=== PATIENT | male | born 1965 | race African-American/Black ===

== ENCOUNTER 2021-09-26 03:09 | Emergency (ER) | payer MEDICAID, OTHER ==
[~2021-09-26] VITALS: Ht 185.4 cm; Wt 104.3 kg
[2021-09-26 04:12] LABS: Basophils # (auto) 0.1 10 ^3/uL (0-0.2); Basophils % (auto) 0.6 % (0.0-2.0); Eosinophils # (auto) 0.1 10 ^3/uL (0-0.8); Hematocrit 37.5 % (41.0-53.0); Hemoglobin 12.7 g/dL (13.5-17.5); Lymphocytes # (auto) 1.5 10 ^3/uL (0.4-5.4); Mean Corpuscular Hemoglobin 29.3 pg (28.0-32.0); Mean Corpuscular Hgb Conc. 33.9 g/dL (32.0-36.0); Mean Corpuscular Volume 86.4 fL (80.0-100.0); Monocytes # (auto) 0.5 10 ^3/uL (0-1.3); Monocytes % (auto) 5.8 % (0.0-12.0); Neutrophils # (auto) 6.6 10 ^3/uL (1.6-8.6); Neutrophils % (auto) 75.6 % (37.0-80.0); Red Blood Cells 4.34 10^6/uL (4.5-5.90); Red Cell Distribution Width 15.8 % (11.8-14.3); White Blood Cell 8.7 10^3/uL (4.4-10.8)
[2021-09-26 04:20] LABS: Albumin 3.6 g/dL (3.4-5.0); BUN/Creatinine Ratio 9.9; Magnesium 1.7 mg/dL (1.6-2.6)
[2021-09-26 04:25] LABS: Bilirubin, Total 0.7 mg/dL (0.2-1.0); Total Protein 7.8 g/dL (6.4-8.2)
[2021-09-26 04:42] LABS: INR 1.09 (0.9-1.15); Partial Thromboplastin Time < 20.0 sec (23.6-33.0)
[2021-09-26 06:38] LABS: Urine Bacteria NONE SEEN /hpf (None Seen); Urine Blood 1+ /uL (Negative); Urine Specific Gravity 1.011 (1.001-1.035); Urine WBC 1 /hpf (0 - 3)
[2021-09-26] MEDS ORDERED: ONDANSETRON HCL 4 MG/2 ML VIAL IV ONE (06:45)
[2021-09-26 06:46] VITALS: BP 170/98
== END 2021-09-26 06:59 | disposition short-term general hospital (02) ==
LOC: ER 03:09 → EDBD 03:09 → ER 06:59
DX: R47.01 Aphasia (principal); I16.0 Hypertensive urgency; Z86.73 Personal history of transient ischemic attack (TIA), and cerebral infarction without residual deficits
CPT/HCPCS: 36415; 70450; 80053; 81001; 83735; 84484; 85025; 85610; 85730; 93005; 96374; 96375; 99285; J2405

== ENCOUNTER 2021-10-05 02:03 | Inpatient (IN) | payer MEDICAID ==
[~2021-10-05] VITALS: Ht 185.4 cm; Wt 107.5 kg
[2021-10-05 03:24] LABS: Basophils # (auto) 0 10 ^3/uL (0-0.2); Basophils % (auto) 0.6 % (0.0-2.0); Eosinophils # (auto) 0.2 10 ^3/uL (0-0.8); Eosinophils % (auto) 4.2 % (0.0-7.0); Lymphocytes # (auto) 1.4 10 ^3/uL (0.4-5.4); Lymphocytes % (auto) 23.9 % (10.0-50.0); Mean Corpuscular Hemoglobin 29.4 pg (28.0-32.0); Mean Corpuscular Hgb Conc. 34.2 g/dL (32.0-36.0); Monocytes # (auto) 0.7 10 ^3/uL (0-1.3); Monocytes % (auto) 11.7 % (0.0-12.0); Neutrophils # (auto) 3.5 10 ^3/uL (1.6-8.6); Neutrophils % (auto) 59.6 % (37.0-80.0); Nucleated Red Blood Cells % 0.1 %; Red Blood Cells 4.42 10^6/uL (4.5-5.90); Red Cell Distribution Width 16.3 % (11.8-14.3); White Blood Cell 5.9 10^3/uL (4.4-10.8)
[2021-10-05 03:39] LABS: Calcium 9.2 mg/dL (8.5-10.1); Potassium 3.7 mmol/L (3.5-5.1)
[2021-10-05 03:42] LABS: Albumin 3.7 g/dL (3.4-5.0); BUN/Creatinine Ratio 19.7
[2021-10-05 03:48] LABS: Bilirubin, Total 0.4 mg/dL (0.2-1.0); Total Protein 7.6 g/dL (6.4-8.2)
[2021-10-05] MEDS ORDERED: ASPirin 325 MG TAB PO ONE (04:00)
[2021-10-05] MEDS ORDERED: NITROGLYCERIN 0.4 MG SL TAB SL ONE (04:45)
[2021-10-05 04:56] LABS: Urine Bacteria NONE SEEN /hpf (None Seen); Urine Blood Negative /uL (Negative); Urine Specific Gravity 1.013 (1.001-1.035); Urine WBC <1 /hpf (0 - 3)
[2021-10-05] MEDS ORDERED: ONDANSETRON HCL 4 MG/2 ML VIAL IV PRN (06:15)
[2021-10-05] MEDS ORDERED: NITROGLYCERIN 0.4 MG SL TAB SL PRN (06:15)
[2021-10-05] MEDS ORDERED: MORPHINE SULFATE INJECTION 2 MG/ML SYRG IV PRN (06:15)
[2021-10-05] MEDS ORDERED: ACETAMINOPHEN 325 MG TAB PO PRN (06:15)
[2021-10-05] MEDS: LISINOPRIL 10 MG TAB PO SCH ×2 (06:33→12:00)
[2021-10-05] MEDS: ENOXAPARIN SOD 100 MG/1 ML SYRINGE SC ONE ×2 (06:34→06:40)
[2021-10-05] MEDS ORDERED: HYDR50TA15 PO ×2 (09:33→12:58)
[2021-10-05] MEDS ORDERED: LISI-716 PO (09:33)
[2021-10-05] MEDS ORDERED: AMLO-489 PO (09:34)
[2021-10-05] MEDS ORDERED: CARV25TA55 PO ×2 (09:34→12:58)
[2021-10-05] MEDS ORDERED: ASPI-543 PO (09:34)
[2021-10-05] MEDS ORDERED: ATOR-47 PO (09:34)
[2021-10-05] MEDS ORDERED: TICA90TA PO ×2 (09:34→12:58)
[2021-10-05 10:56] VITALS: BP 175/100
[2021-10-05] MEDS: PANTOPRAZOLE 40 MG TAB PO SCH (12:00)
[2021-10-05] MEDS: ASPirin 81 mg TAB PO SCH (12:00)
[2021-10-05 12:56] VITALS: BP 182/83
[2021-10-05] MEDS ORDERED: INSLISPI SC (12:58)
[2021-10-05] MEDS ORDERED: INSLANTI SC (12:58)
[2021-10-05 15:48] VITALS: BP 138/81
[2021-10-05] MEDS: hydrALAZINE HCL 20 MG/ML VL IV PRN (17:40)
[2021-10-05] MEDS: CARVEDILOL 12.5 MG TAB PO SCH (21:00)
[2021-10-05] MEDS: ATORVASTATIN 20 MG TAB PO SCH (21:01)
[2021-10-05 22:00] VITALS: BP 131/70
[2021-10-05] MEDS ORDERED: ATORVASTATIN 20 MG TAB PO SCH (22:00)
[2021-10-05] MEDS ORDERED: DEXTROSE (50%) 50ML SYRG IV PRN (22:15)
[2021-10-06 05:00] VITALS: BP 143/82
[2021-10-06 05:41] LABS: Basophils # (auto) 0 10 ^3/uL (0-0.2); Basophils % (auto) 0.8 % (0.0-2.0); Eosinophils # (auto) 0.2 10 ^3/uL (0-0.8); Eosinophils % (auto) 3.9 % (0.0-7.0); Hematocrit 35.2 % (41.0-53.0); Hemoglobin 12.3 g/dL (13.5-17.5); Lymphocytes # (auto) 1.5 10 ^3/uL (0.4-5.4); Lymphocytes % (auto) 32.9 % (10.0-50.0); Mean Corpuscular Hemoglobin 29.9 pg (28.0-32.0); Mean Corpuscular Hgb Conc. 34.9 g/dL (32.0-36.0); Mean Corpuscular Volume 85.6 fL (80.0-100.0); Monocytes # (auto) 0.6 10 ^3/uL (0-1.3); Monocytes % (auto) 13.8 % (0.0-12.0); Neutrophils # (auto) 2.2 10 ^3/uL (1.6-8.6); Neutrophils % (auto) 48.6 % (37.0-80.0); Nucleated Red Blood Cells % 0.1 %; Red Blood Cells 4.11 10^6/uL (4.5-5.90); Red Cell Distribution Width 16.1 % (11.8-14.3); White Blood Cell 4.6 10^3/uL (4.4-10.8)
[2021-10-06 05:54] LABS: Albumin 3.2 g/dL (3.4-5.0); Potassium 4.1 mmol/L (3.5-5.1)
[2021-10-06 05:57] LABS: BUN/Creatinine Ratio 14.6
[2021-10-06 05:59] LABS: Bilirubin, Total 0.4 mg/dL (0.2-1.0); Total Protein 6.8 g/dL (6.4-8.2)
[2021-10-06] MEDS: InsuLIN REG 1unit/0.01ml Soln (100units/ml) SC SCH ×4 (07:00→21:34)
[2021-10-06] MEDS: ACCU-CHEK COMFORT CURVE STRIP VI SCH ×4 (07:01→21:28)
[2021-10-06] MEDS ORDERED: ADENOSINE 88 MG in GIVE UN-DILUTED 0 ML IV STA (08:00)
[2021-10-06 08:56] VITALS: BP 148/93
[2021-10-06] MEDS: amLODIPine BESYLATE 5 MG TAB PO SCH (12:34)
[2021-10-06] MEDS: CARVEDILOL 12.5 MG TAB PO SCH ×2 (12:34→21:29)
[2021-10-06] MEDS: ENOXAPARIN SOD 120 MG/0.8 ML SYRINGE SC SCH (12:35)
[2021-10-06] MEDS: ASPirin 81 mg TAB PO SCH (12:35)
[2021-10-06] MEDS: PANTOPRAZOLE 40 MG TAB PO SCH (12:35)
[2021-10-06 12:53] VITALS: BP 173/103
[2021-10-06 17:00] VITALS: BP 129/71
[2021-10-06] MEDS: ATORVASTATIN 20 MG TAB PO SCH (21:29)
[2021-10-06 22:26] VITALS: BP 148/88
[2021-10-07 05:00] VITALS: BP 142/72
[2021-10-07] MEDS: InsuLIN REG 1unit/0.01ml Soln (100units/ml) SC SCH ×4 (06:10→21:01)
[2021-10-07] MEDS: ACCU-CHEK COMFORT CURVE STRIP VI SCH ×4 (06:11→21:03)
[2021-10-07 06:14] LABS: Basophils # (auto) 0.1 10 ^3/uL (0-0.2); Basophils % (auto) 1.1 % (0.0-2.0); Eosinophils # (auto) 0.2 10 ^3/uL (0-0.8); Eosinophils % (auto) 4.2 % (0.0-7.0); Hematocrit 35.3 % (41.0-53.0); Lymphocytes # (auto) 1.8 10 ^3/uL (0.4-5.4); Lymphocytes % (auto) 36.2 % (10.0-50.0); Mean Corpuscular Hemoglobin 29.4 pg (28.0-32.0); Mean Corpuscular Hgb Conc. 34.1 g/dL (32.0-36.0); Monocytes # (auto) 0.7 10 ^3/uL (0-1.3); Monocytes % (auto) 13.2 % (0.0-12.0); Neutrophils # (auto) 2.3 10 ^3/uL (1.6-8.6); Neutrophils % (auto) 45.3 % (37.0-80.0); Nucleated Red Blood Cells % 0.1 %; Red Cell Distribution Width 16.1 % (11.8-14.3); White Blood Cell 5.1 10^3/uL (4.4-10.8)
[2021-10-07 06:42] LABS: BUN/Creatinine Ratio 13.3; Bilirubin, Total 0.4 mg/dL (0.2-1.0); Calcium 9.2 mg/dL (8.5-10.1); Total Protein 6.9 g/dL (6.4-8.2)
[2021-10-07 08:36] VITALS: BP 148/84
[2021-10-07] MEDS: CARVEDILOL 12.5 MG TAB PO SCH ×2 (08:54→21:07)
[2021-10-07] MEDS: ASPirin 81 mg TAB PO SCH (08:54)
[2021-10-07] MEDS: PANTOPRAZOLE 40 MG TAB PO SCH (08:55)
[2021-10-07] MEDS: amLODIPine BESYLATE 5 MG TAB PO SCH (08:55)
[2021-10-07] MEDS: ENOXAPARIN SOD 120 MG/0.8 ML SYRINGE SC SCH (08:56)
[2021-10-07 11:31] LABS: Cholesterol 187 mg/dL (< 200); HDL Cholesterol 50 mg/dL (40-59); LDL Cholesterol 115 mg/dL (< 100); Triglycerides 81 mg/dL (< 150)
[2021-10-07 12:51] VITALS: BP 158/95
[2021-10-07] MEDS: hydrALAZINE HCL 20 MG/ML VL IV PRN (13:27)
[2021-10-07 16:47] VITALS: BP 139/83
[2021-10-07] MEDS: FLUTICASONE PROP NASAL SPR 0.05 % (50MCG) 16GM EACHNOSTRI SCH (21:01)
[2021-10-07] MEDS: ATORVASTATIN 20 MG TAB PO SCH (21:02)
[2021-10-07 21:07] LABS: Protein, Urine 100.1 mg/dL (0.0-11.9)
[2021-10-07 21:36] VITALS: BP 133/77
[2021-10-08 05:00] VITALS: BP 141/88
[2021-10-08] MEDS: ACCU-CHEK COMFORT CURVE STRIP VI SCH ×2 (06:16→11:30)
[2021-10-08] MEDS: InsuLIN REG 1unit/0.01ml Soln (100units/ml) SC SCH ×2 (06:17→11:30)
[2021-10-08 06:19] LABS: BUN/Creatinine Ratio 12.6; Calcium 9.7 mg/dL (8.5-10.1); Potassium 3.9 mmol/L (3.5-5.1)
[2021-10-08 09:00] VITALS: BP 147/88
[2021-10-08] MEDS: ASPirin 81 mg TAB PO SCH (09:07)
[2021-10-08] MEDS: FLUTICASONE PROP NASAL SPR 0.05 % (50MCG) 16GM EACHNOSTRI SCH (09:07)
[2021-10-08] MEDS: amLODIPine BESYLATE 5 MG TAB PO SCH (09:08)
[2021-10-08] MEDS: CARVEDILOL 12.5 MG TAB PO SCH (09:08)
[2021-10-08] MEDS: PANTOPRAZOLE 40 MG TAB PO SCH (09:09)
[2021-10-08] MEDS: ENOXAPARIN SOD 120 MG/0.8 ML SYRINGE SC SCH (09:09)
[2021-10-08] MEDS ORDERED: INSLISPI SC (09:59)
[2021-10-08] MEDS ORDERED: INSLANTI SC (09:59)
[2021-10-08 11:32] VITALS: BP 147/88
[2021-10-08 13:00] VITALS: BP 158/89
[2021-10-09] MEDS ORDERED: PNEUMOCOCCAL VACC POLYS 25 MCG/0.5 ML VIAL IM ONE (12:45)
== END 2021-10-08 14:45 | disposition home or self-care (01) | DRG 194 ==
LOC: ER 02:05 → TELE 06:04 → TELE-WESTW 09:15
PROVIDERS: ADMIT Nurse Practitioner; ATTEND Family Medicine
DX: I13.0 Hypertensive heart and chronic kidney disease with heart failure and stage 1 through stage 4 chronic kidney disease, or unspecified chronic kidney disease (principal); I21.A1 Myocardial infarction type 2; N17.9 Acute kidney failure, unspecified; I50.31 Acute diastolic (congestive) heart failure; R09.89 Other specified symptoms and signs involving the circulatory and respiratory systems; I25.10 Atherosclerotic heart disease of native coronary artery without angina pectoris; E11.22 Type 2 diabetes mellitus with diabetic chronic kidney disease; E78.5 Hyperlipidemia, unspecified; N18.9 Chronic kidney disease, unspecified; Z20.822 Contact with and (suspected) exposure to COVID-19; I25.2 Old myocardial infarction; Z83.3 Family history of diabetes mellitus; Z86.73 Personal history of transient ischemic attack (TIA), and cerebral infarction without residual deficits; Z91.14 Patient's other noncompliance with medication regimen
CPT/HCPCS: 36415; 70450; 71045; 76775; 78452; 80048; 80053; 80061; 81001; 82570; 82962; 83036; 83880; 84156; 84484; 85025; 85379; 87081; 93005; 93017; 93306; 93975; 96372; G0378; J0153; J1815

== ENCOUNTER 2022-06-16 11:13 | Inpatient (IN) | payer MEDICAID ==
[~2022-06-16] VITALS: Ht 185.4 cm; Wt 109.8 kg
[~2022-06-16 11:13] MED LIST: AMLO-489 PO; ASPI-543 PO; ATOR-47 PO; CARV25TA55 PO; HYDR50TA15 PO; INSLANTI SC; INSLISPI SC; LISI-716 PO; TICA90TA PO
[2022-06-16] MEDS ORDERED: hydrALAZINE HCL 20 MG/ML VL IV ONE (11:45)
[2022-06-16 11:52] LABS: Basophils # (auto) 0 10 ^3/uL (0-0.2); Basophils % (auto) 0.5 % (0.0-2.0); Eosinophils # (auto) 0.1 10 ^3/uL (0-0.8); Eosinophils % (auto) 1.4 % (0.0-7.0); Hematocrit 38.8 % (41.0-53.0); Hemoglobin 12.7 g/dL (13.5-17.5); Lymphocytes # (auto) 1.2 10 ^3/uL (0.4-5.4); Lymphocytes % (auto) 21.2 % (10.0-50.0); Mean Corpuscular Hemoglobin 28.8 pg (28.0-32.0); Mean Corpuscular Hgb Conc. 32.7 g/dL (32.0-36.0); Mean Corpuscular Volume 88.2 fL (80.0-100.0); Monocytes # (auto) 0.5 10 ^3/uL (0-1.3); Monocytes % (auto) 8.7 % (0.0-12.0); Neutrophils # (auto) 3.8 10 ^3/uL (1.6-8.6); Neutrophils % (auto) 68.2 % (37.0-80.0); Nucleated Red Blood Cells % 0.2 %; Red Cell Distribution Width 14.8 % (11.8-14.3); White Blood Cell 5.5 10^3/uL (4.4-10.8)
[2022-06-16 11:59] LABS: Albumin 3.9 g/dL (3.4-5.0); Calcium 9.9 mg/dL (8.5-10.1); Magnesium 2.5 mg/dL (1.6-2.6); Potassium 3.8 mmol/L (3.5-5.1)
[2022-06-16 12:02] LABS: BUN/Creatinine Ratio 10.8; Bilirubin, Total 0.9 mg/dL (0.2-1.0)
[2022-06-16 12:10] LABS: INR 1.01 (0.9-1.15); Partial Thromboplastin Time 26.3 sec (24.6-33.4)
[2022-06-16] MEDS ORDERED: ENOXAPARIN SOD 100 MG/1 ML SYRINGE SC ONE (12:15)
[2022-06-16] MEDS ORDERED: ONDANSETRON HCL 4 MG/2 ML VIAL ONE (13:36)
[2022-06-16] MEDS ORDERED: ONDANSETRON HCL 4 MG/2 ML VIAL IV ONE (13:45)
[2022-06-16 14:52] LABS: Urine Blood 1+ /uL (Negative); Urine Specific Gravity 1.022 (1.001-1.035)
[2022-06-16] MEDS ORDERED: METOPROLOL TARTRATE 1MG/1ML-5ML VIAL IV ONE (15:45)
[2022-06-16] MEDS ORDERED: MORPHINE SULFATE INJ 2 MG/ml SYRG IV PRN (16:15)
[2022-06-16] MEDS ORDERED: ACETAMINOPHEN 325 MG TAB PO PRN (16:15)
[2022-06-16] MEDS ORDERED: NITROGLYCERIN 0.4 MG SL TAB SL PRN (16:15)
[2022-06-16 17:28] LABS: Magnesium 2.2 mg/dL (1.6-2.6); Phosphorus 2.7 mg/dL (2.5-4.90)
[2022-06-16] MEDS: ACCU-CHEK COMFORT CURVE STRIP VI SCH ×2 (17:46→22:18)
[2022-06-16] MEDS: InsuLIN REG 1unit/0.01ml Soln (100units/ml) SC SCH ×2 (17:55→22:22)
[2022-06-16] MEDS: hydrALAZINE HCL 20 MG/ML VL IV PRN (20:17)
[2022-06-16] MEDS ORDERED: LORazepam 2MG/ML-1ML VIAL IV PRN (21:30)
[2022-06-16] MEDS ORDERED: ATORVASTATIN 20 MG TAB PO SCH (22:00)
[2022-06-16 22:10] LABS: Cholesterol 271 mg/dL (< 200)
[2022-06-16 22:13] LABS: Creatinine, Urine 240 mg/dL (30.0-125.0); Sodium Urine 96 mmol/L (40-220)
[2022-06-16 22:13] LABS: HDL Cholesterol 57 mg/dL (40-59); LDL Cholesterol 206 mg/dL (< 100); Triglycerides 87 mg/dL (< 150)
[2022-06-16] MEDS: ATORVASTATIN 20 MG TAB PO SCH ×2 (22:23→22:27)
[2022-06-16] MEDS: METOPROLOL TARTRATE 25 MG TAB PO SCH (22:24)
[2022-06-16 22:43] LABS: Amphetamine Screen, Urine NEGATIVE (NEGATIVE); Barbiturate Scree,Urine NEGATIVE (NEGATIVE); Benzodiazephine Screen, Urine NEGATIVE (NEGATIVE); Cannabinoid Screen, Urine NEGATIVE (NEGATIVE); Cocaine Screen, Urine NEGATIVE (NEGATIVE); Opiate Scree,Urine NEGATIVE (NEGATIVE); Phencyclidine Screen, Urine NEGATIVE (NEGATIVE)
[2022-06-16] MEDS: ENOXAPARIN SOD 100 MG/1 ML SYRINGE SC SCH (23:24)
[2022-06-17 06:33] LABS: Basophils # (auto) 0.1 10 ^3/uL (0-0.2); Basophils % (auto) 1.1 % (0.0-2.0); Eosinophils # (auto) 0.1 10 ^3/uL (0-0.8); Eosinophils % (auto) 1.2 % (0.0-7.0); Hematocrit 37.4 % (41.0-53.0); Hemoglobin 12.4 g/dL (13.5-17.5); Lymphocytes # (auto) 2.1 10 ^3/uL (0.4-5.4); Lymphocytes % (auto) 28.1 % (10.0-50.0); Mean Corpuscular Hemoglobin 29.2 pg (28.0-32.0); Mean Corpuscular Hgb Conc. 33.2 g/dL (32.0-36.0); Mean Corpuscular Volume 87.8 fL (80.0-100.0); Monocytes # (auto) 0.7 10 ^3/uL (0-1.3); Monocytes % (auto) 9.3 % (0.0-12.0); Neutrophils # (auto) 4.5 10 ^3/uL (1.6-8.6); Neutrophils % (auto) 60.3 % (37.0-80.0); Nucleated Red Blood Cells % 0.1 %; Red Blood Cells 4.26 10^6/uL (4.5-5.90); Red Cell Distribution Width 14.8 % (11.8-14.3); White Blood Cell 7.4 10^3/uL (4.4-10.8)
[2022-06-17 06:53] LABS: Albumin 3.3 g/dL (3.4-5.0); BUN/Creatinine Ratio 13.3; Calcium 9.4 mg/dL (8.5-10.1); Potassium 3.9 mmol/L (3.5-5.1)
[2022-06-17] MEDS: ACCU-CHEK COMFORT CURVE STRIP VI SCH ×4 (06:55→21:39)
[2022-06-17 06:56] LABS: Bilirubin, Total 0.8 mg/dL (0.2-1.0); Total Protein 7.4 g/dL (6.4-8.2)
[2022-06-17] MEDS: InsuLIN REG 1unit/0.01ml Soln (100units/ml) SC SCH ×4 (07:22→21:45)
[2022-06-17] MEDS: hydrALAZINE HCL 20 MG/ML VL IV PRN ×2 (08:04→19:25)
[2022-06-17] MEDS: LOSARTAN POTASSIUM 25 MG TAB PO SCH (10:00)
[2022-06-17] MEDS: ASPirin 325 MG TAB PO SCH (10:00)
[2022-06-17] MEDS: METOPROLOL TARTRATE 25 MG TAB PO SCH ×2 (10:00→21:38)
[2022-06-17] MEDS: ENOXAPARIN SOD 100 MG/1 ML SYRINGE SC SCH ×2 (10:00→21:39)
[2022-06-17 18:30] VITALS: BP 154/97
[2022-06-17] MEDS: ATORVASTATIN 20 MG TAB PO SCH (21:39)
[2022-06-17 22:00] VITALS: BP 147/76
[2022-06-18 05:00] VITALS: BP 146/93
[2022-06-18 06:06] LABS: RPR Non Reactive (Non Reactive)
[2022-06-18] MEDS: ACCU-CHEK COMFORT CURVE STRIP VI SCH ×4 (06:07→22:24)
[2022-06-18] MEDS: InsuLIN REG 1unit/0.01ml Soln (100units/ml) SC SCH ×4 (06:12→22:39)
[2022-06-18 09:00] VITALS: BP 155/94
[2022-06-18] MEDS: ASPirin 325 MG TAB PO SCH (09:28)
[2022-06-18] MEDS: ENOXAPARIN SOD 100 MG/1 ML SYRINGE SC SCH ×2 (09:28→22:22)
[2022-06-18] MEDS: METOPROLOL TARTRATE 25 MG TAB PO SCH ×2 (09:29→22:21)
[2022-06-18] MEDS: LOSARTAN POTASSIUM 25 MG TAB PO SCH (09:29)
[2022-06-18 13:00] VITALS: BP 155/79
[2022-06-18 17:00] VITALS: BP 155/90
[2022-06-18 22:00] VITALS: BP 169/95
[2022-06-18] MEDS: ATORVASTATIN 20 MG TAB PO SCH (22:21)
[2022-06-19 05:00] VITALS: BP 142/78
[2022-06-19] MEDS: ACCU-CHEK COMFORT CURVE STRIP VI SCH ×2 (06:33→12:30)
[2022-06-19] MEDS: InsuLIN REG 1unit/0.01ml Soln (100units/ml) SC SCH ×2 (06:33→12:53)
[2022-06-19 08:00] VITALS: BP 176/104
[2022-06-19] MEDS: LOSARTAN POTASSIUM 25 MG TAB PO SCH (09:03)
[2022-06-19] MEDS: METOPROLOL TARTRATE 25 MG TAB PO SCH (09:03)
[2022-06-19] MEDS: hydrALAZINE HCL 20 MG/ML VL IV PRN (09:04)
[2022-06-19] MEDS: ASPirin 325 MG TAB PO SCH (09:09)
[2022-06-19] MEDS: ENOXAPARIN SOD 100 MG/1 ML SYRINGE SC SCH (09:11)
[2022-06-19] MEDS ORDERED: ASPI-123 PO (09:49)
[2022-06-19 12:00] VITALS: BP 151/89
[2022-06-19] MEDS ORDERED: HYDR50TA15 PO (12:47)
[2022-06-19 15:56] VITALS: BP 151/89
[2022-06-19 16:00] VITALS: BP 171/83
[2022-06-20] MEDS ORDERED: PNEUMOCOCCAL VACC POLYS 25 MCG/0.5 ML VIAL IM ONE (09:00)
[2022-06-20] MEDS ORDERED: INFLUENZA QUAD 2022-2023 0.5 ML SYRG IM ONE (09:00)
[2022-06-20 12:26] LABS: Hepatitis C Antibody Negative (Negative)
== END 2022-06-19 18:00 | disposition home or self-care (01) | DRG 45 ==
LOC: ER 11:13 → TELE 16:16 → UNDOADMIN 19:02 → TELE-EAST 06-17 18:27
PROVIDERS: ADMIT Nurse Practitioner Family; ATTEND Internal Medicine
PROC: 5A09357 Assistance with Respiratory Ventilation, Less than 24 Consecutive Hours, Continuous Positive Airway Pressure (ICD-10-PCS; principal; 2022-06-17)
DX: I63.9 Cerebral infarction, unspecified (principal); I21.A1 Myocardial infarction type 2; N17.9 Acute kidney failure, unspecified; R47.01 Aphasia; E11.22 Type 2 diabetes mellitus with diabetic chronic kidney disease; E11.65 Type 2 diabetes mellitus with hyperglycemia; I16.1 Hypertensive emergency; E78.5 Hyperlipidemia, unspecified; G47.10 Hypersomnia, unspecified; Z20.822 Contact with and (suspected) exposure to COVID-19; I12.9 Hypertensive chronic kidney disease with stage 1 through stage 4 chronic kidney disease, or unspecified chronic kidney disease; I25.10 Atherosclerotic heart disease of native coronary artery without angina pectoris; Z79.82 Long term (current) use of aspirin; Z86.73 Personal history of transient ischemic attack (TIA), and cerebral infarction without residual deficits; I25.2 Old myocardial infarction; Z80.9 Family history of malignant neoplasm, unspecified; Z82.49 Family history of ischemic heart disease and other diseases of the circulatory system; Z79.899 Other long term (current) drug therapy; Z82.3 Family history of stroke; N18.30 Chronic kidney disease, stage 3 unspecified
CPT/HCPCS: 36415; 70450; 70551; 71045; 80053; 80061; 80307; 81003; 82570; 82962; 83036; 83735; 84100; 84300; 84484; 85025; 85610; 85730; 86592; 86803; 87340; 87426; 92610; 93005; 93306; 93886; 94660; 96372; 96374; 96375; 99291; G0378; J1815; J2405

== ENCOUNTER 2022-12-15 17:32 | Inpatient (IN) | payer MEDICAID ==
[~2022-12-15] VITALS: Ht 185.4 cm; Wt 106.0 kg
[~2022-12-15 17:32] MED LIST changes: -AMLO-489 PO; +AMLO1TAB22 PO; +ASPI-123 PO; -ASPI-543 PO; +HYDR-4297 PO; -HYDR50TA15 PO; -LISI-716 PO; +LISI10TA34 PO
[2022-12-15 18:11] LABS: Basophils # (auto) 0.1 10 ^3/uL (0-0.2); Basophils % (auto) 0.9 % (0.0-2.0); Eosinophils # (auto) 0.2 10 ^3/uL (0-0.8); Eosinophils % (auto) 3.1 % (0.0-7.0); Hematocrit 37.8 % (41.0-53.0); Hemoglobin 12.8 g/dL (13.5-17.5); Lymphocytes # (auto) 1.2 10 ^3/uL (0.4-5.4); Lymphocytes % (auto) 21.4 % (10.0-50.0); Mean Corpuscular Hemoglobin 29.8 pg (28.0-32.0); Mean Corpuscular Hgb Conc. 33.8 g/dL (32.0-36.0); Mean Corpuscular Volume 88.3 fL (80.0-100.0); Monocytes # (auto) 0.5 10 ^3/uL (0-1.3); Monocytes % (auto) 9.4 % (0.0-12.0); Neutrophils # (auto) 3.7 10 ^3/uL (1.6-8.6); Neutrophils % (auto) 65.2 % (37.0-80.0); Nucleated Red Blood Cells % 0.2 %; Red Blood Cells 4.28 10^6/uL (4.5-5.90); Red Cell Distribution Width 15.2 % (11.8-14.3); White Blood Cell 5.7 10^3/uL (4.4-10.8)
[2022-12-15 18:33] LABS: Albumin 4.1 g/dL (3.4-5.0); Potassium 3.8 mmol/L (3.5-5.1)
[2022-12-15 18:36] LABS: BUN/Creatinine Ratio 10.4 (10.0-20.0); Bilirubin, Total 0.7 mg/dL (0.2-1.0); Total Protein 7.9 g/dL (6.4-8.2)
[2022-12-15] MEDS ORDERED: SODIUM CHLORIDE 0.9% 1,000 ML IVB ONE (18:45)
[2022-12-15 20:23] LABS: Blood Alcohol < 3.0 mg/dL (0-5); Lipase 193 U/L (73-393)
[2022-12-15] MEDS ORDERED: dilTIAZem 25 MG/5 ML VIAL IV ONE (20:30)
[2022-12-15] MEDS ORDERED: PROCHLORPERAZINE EDISYLATE 5 MG/ML 2ML VIAL IM ONE (20:30)
[2022-12-15] MEDS ORDERED: HYDROcodone-ACET 5/325MG TAB PO PRN (22:00)
[2022-12-15] MEDS ORDERED: ACETAMINOPHEN 325 MG TAB PO PRN (22:00)
[2022-12-15] MEDS ORDERED: DEXTROSE (50%) 50ML SYRG IV PRN (22:00)
[2022-12-15] MEDS ORDERED: HEPARIN SODIUM (PORCINE) 5000 UNITS/ML 1ML VIAL IV ONE (22:00)
[2022-12-15] MEDS ORDERED: DOCUSATE SOD 100 MG CAP PO PRN (22:00)
[2022-12-15] MEDS ORDERED: ONDANSETRON HCL 4 MG/2 ML VIAL IV PRN (22:00)
[2022-12-15] MEDS: ATORVASTATIN 20 MG TAB PO SCH (22:20)
[2022-12-15] MEDS: SODIUM CHLOR 0.9% PF (SALINE LOCK) 10ML VIAL/SYR IV SCH (22:24)
[2022-12-15] MEDS: InsuLIN REG 1unit/0.01ml Soln (100units/ml) SC SCH (22:39)
[2022-12-15] MEDS: ACCU-CHEK COMFORT CURVE STRIP VI SCH (22:40)
[2022-12-15] MEDS: hydrALAZINE HCL 20 MG/ML VL IV PRN (23:05)
[2022-12-15] MEDS ORDERED: NITROGLYCERIN 0.4 MG SL TAB SL PRN (23:30)
[2022-12-15] MEDS ORDERED: MORPHINE SULFATE INJ 2 MG/ml SYRG IV PRN (23:30)
[2022-12-15 23:48] LABS: Urine Bacteria NONE SEEN /hpf (None Seen); Urine Blood 1+ /uL (Negative); Urine Specific Gravity 1.023 (1.001-1.035); Urine WBC 1 /hpf (0 - 3)
[2022-12-16] MEDS ORDERED: LISINOPRIL 20 MG TAB PO SCH (01:30)
[2022-12-16] MEDS ORDERED: amLODIPine BESYLATE 5 MG TAB PO ONE (02:45)
[2022-12-16] MEDS ORDERED: hydrALAZINE HCL 20 MG/ML VL IV ONE (02:45)
[2022-12-16] MEDS ORDERED: hydrALAZINE HCL 25 MG TAB PO ONE (04:15)
[2022-12-16 05:17] LABS: Basophils # (auto) 0.1 10 ^3/uL (0-0.2); Basophils % (auto) 0.6 % (0.0-2.0); Eosinophils # (auto) 0.1 10 ^3/uL (0-0.8); Eosinophils % (auto) 1.4 % (0.0-7.0); Hemoglobin 13.7 g/dL (13.5-17.5); Lymphocytes # (auto) 1.8 10 ^3/uL (0.4-5.4); Lymphocytes % (auto) 21.6 % (10.0-50.0); Mean Corpuscular Hemoglobin 30.6 pg (28.0-32.0); Mean Corpuscular Hgb Conc. 35.2 g/dL (32.0-36.0); Mean Corpuscular Volume 86.9 fL (80.0-100.0); Monocytes # (auto) 0.7 10 ^3/uL (0-1.3); Monocytes % (auto) 8.3 % (0.0-12.0); Neutrophils # (auto) 5.6 10 ^3/uL (1.6-8.6); Neutrophils % (auto) 68.1 % (37.0-80.0); Nucleated Red Blood Cells % 0.1 %; Red Blood Cells 4.49 10^6/uL (4.5-5.90); Red Cell Distribution Width 15.4 % (11.8-14.3); White Blood Cell 8.3 10^3/uL (4.4-10.8)
[2022-12-16 05:35] LABS: Albumin 4.1 g/dL (3.4-5.0); Calcium 9.5 mg/dL (8.5-10.1); Potassium 3.3 mmol/L (3.5-5.1)
[2022-12-16 05:38] LABS: BUN/Creatinine Ratio 10.8 (10.0-20.0); Total Protein 8.1 g/dL (6.4-8.2)
[2022-12-16] MEDS: SODIUM CHLOR 0.9% PF (SALINE LOCK) 10ML VIAL/SYR IV SCH ×3 (05:57→21:22)
[2022-12-16] MEDS: hydrALAZINE HCL 20 MG/ML VL IV PRN (06:36)
[2022-12-16] MEDS: ACCU-CHEK COMFORT CURVE STRIP VI SCH ×4 (07:01→22:17)
[2022-12-16] MEDS: InsuLIN REG 1unit/0.01ml Soln (100units/ml) SC SCH ×4 (07:06→22:31)
[2022-12-16] MEDS: hydrALAZINE HCL 25 MG TAB PO SCH ×3 (09:10→22:05)
[2022-12-16] MEDS: HEPARIN SODIUM (PORCINE) 5000 UNITS/ML 1ML VIAL SC SCH ×2 (11:46→22:07)
[2022-12-16] MEDS: ASPirin 81 mg TAB PO SCH (11:48)
[2022-12-16] MEDS: CARVEDILOL 12.5 MG TAB PO SCH ×2 (11:48→22:06)
[2022-12-16] MEDS: LISINOPRIL 20 MG TAB PO SCH (11:48)
[2022-12-16] MEDS: amLODIPine BESYLATE 5 MG TAB PO SCH (11:49)
[2022-12-16 17:16] LABS: INR 1.01 (0.9-1.15); Partial Thromboplastin Time 26.7 sec (24.6-33.4)
[2022-12-16] MEDS: ATORVASTATIN 20 MG TAB PO SCH (22:05)
[2022-12-16 23:42] VITALS: BP 147/78
[2022-12-17] VITALS (8 sets, daily range): BP systolic 131–169; BP diastolic 65–99
[2022-12-17] MEDS: hydrALAZINE HCL 25 MG TAB PO SCH ×3 (05:36→22:30)
[2022-12-17] MEDS: SODIUM CHLOR 0.9% PF (SALINE LOCK) 10ML VIAL/SYR IV SCH ×3 (05:37→22:37)
[2022-12-17] MEDS: ACCU-CHEK COMFORT CURVE STRIP VI SCH ×4 (06:23→22:00)
[2022-12-17] MEDS: InsuLIN REG 1unit/0.01ml Soln (100units/ml) SC SCH ×3 (06:27→22:36)
[2022-12-17 10:04] LABS: Protein, Urine 288.3 mg/dL (0.0-11.9)
[2022-12-17] MEDS: LISINOPRIL 20 MG TAB PO SCH (10:30)
[2022-12-17] MEDS: ASPirin 81 mg TAB PO SCH (10:30)
[2022-12-17] MEDS: amLODIPine BESYLATE 5 MG TAB PO SCH (10:30)
[2022-12-17] MEDS: HEPARIN SODIUM (PORCINE) 5000 UNITS/ML 1ML VIAL SC SCH ×2 (10:34→22:35)
[2022-12-17] MEDS: CARVEDILOL 12.5 MG TAB PO SCH ×2 (10:39→22:29)
[2022-12-17] MEDS: ATORVASTATIN 20 MG TAB PO SCH (22:29)
[2022-12-18 05:00] VITALS: BP 133/82
[2022-12-18 05:25] LABS: Albumin 3.4 g/dL (3.4-5.0); Calcium 9.1 mg/dL (8.5-10.1); Potassium 3.7 mmol/L (3.5-5.1)
[2022-12-18 05:31] LABS: Bilirubin, Total 0.8 mg/dL (0.2-1.0); Total Protein 7.6 g/dL (6.4-8.2)
[2022-12-18] MEDS: SODIUM CHLOR 0.9% PF (SALINE LOCK) 10ML VIAL/SYR IV SCH (06:00)
[2022-12-18] MEDS: hydrALAZINE HCL 25 MG TAB PO SCH (06:44)
[2022-12-18] MEDS: ACCU-CHEK COMFORT CURVE STRIP VI SCH (06:47)
[2022-12-18] MEDS: InsuLIN REG 1unit/0.01ml Soln (100units/ml) SC SCH (06:56)
[2022-12-18] MEDS: ASPirin 81 mg TAB PO SCH (08:42)
[2022-12-18] MEDS: CARVEDILOL 12.5 MG TAB PO SCH (08:42)
[2022-12-18] MEDS: amLODIPine BESYLATE 5 MG TAB PO SCH (08:43)
[2022-12-18] MEDS: LISINOPRIL 20 MG TAB PO SCH (08:43)
[2022-12-18] MEDS: HEPARIN SODIUM (PORCINE) 5000 UNITS/ML 1ML VIAL SC SCH (08:44)
[2022-12-18 09:00] VITALS: BP 131/66
[2022-12-18] MEDS ORDERED: LISI20TA56 PO (10:46)
[2022-12-18] MEDS ORDERED: ASPI-325 PO (10:46)
[2022-12-18] MEDS ORDERED: AML5T PO (10:46)
[2022-12-18] MEDS ORDERED: HYDR25TA87 PO (10:46)
[2022-12-18] MEDS ORDERED: CAR125T PO (10:46)
== END 2022-12-18 12:00 | disposition home or self-care (01) | DRG 199 ==
LOC: ER 17:32 → TELE 23:28 → TELE-WESTW 12-16 22:40
PROVIDERS: ADMIT Nurse Practitioner Family; ATTEND Internal Medicine
DX: I16.0 Hypertensive urgency (principal); N17.0 Acute kidney failure with tubular necrosis; I21.A1 Myocardial infarction type 2; I67.4 Hypertensive encephalopathy; E11.22 Type 2 diabetes mellitus with diabetic chronic kidney disease; D64.9 Anemia, unspecified; E78.5 Hyperlipidemia, unspecified; E86.0 Dehydration; N18.9 Chronic kidney disease, unspecified; R80.9 Proteinuria, unspecified; I12.9 Hypertensive chronic kidney disease with stage 1 through stage 4 chronic kidney disease, or unspecified chronic kidney disease; Z86.73 Personal history of transient ischemic attack (TIA), and cerebral infarction without residual deficits; Z79.82 Long term (current) use of aspirin; Z79.4 Long term (current) use of insulin; Z82.49 Family history of ischemic heart disease and other diseases of the circulatory system; Z91.148 Patient's other noncompliance with medication regimen for other reason; Z91.199 Patient's noncompliance with other medical treatment and regimen due to unspecified reason
CPT/HCPCS: 36415; 70450; 70551; 71045; 76775; 80053; 80320; 81001; 82306; 82570; 82962; 83036; 83690; 83970; 84100; 84156; 84300; 84484; 85025; 85610; 85730; 93005; 96374; 96375; 96376; G0378; J1815; J2405

== ENCOUNTER 2023-01-21 07:19 | Emergency (ER) | payer MEDICAID ==
[~2023-01-21] VITALS: Ht 185.4 cm; Wt 101.0 kg
[~2023-01-21 07:19] MED LIST changes: +AML5T PO; +ASPI-325 PO; +CAR125T PO; +HYDR25TA87 PO; +LISI20TA56 PO
[2023-01-21] MEDS ORDERED: KETOROLAC TROMETH 60MG/2ML VIAL IM ONE (08:45)
[2023-01-21 08:55] VITALS: BP 142/77
[2023-01-21] MEDS ORDERED: IBUP-1456 PO (09:29)
[2023-01-21] MEDS ORDERED: GABA-1250 PO (09:29)
== END 2023-01-21 09:36 | disposition home or self-care (01) ==
LOC: ER 07:19
DX: M51.16 Intervertebral disc disorders with radiculopathy, lumbar region (principal); E11.9 Type 2 diabetes mellitus without complications; E78.5 Hyperlipidemia, unspecified; I10 Essential (primary) hypertension; Z79.899 Other long term (current) drug therapy; Z79.82 Long term (current) use of aspirin; Z79.4 Long term (current) use of insulin; Z86.73 Personal history of transient ischemic attack (TIA), and cerebral infarction without residual deficits
CPT/HCPCS: 72100; 96372; 99283; J1885